=== PATIENT | female | born 1990 | race Hispanic/Latino ===

== ENCOUNTER 2021-10-24 07:22 | Emergency (ER) | payer MEDICAID, OTHER ==
[~2021-10-24] VITALS: Ht 160 cm; Wt 61.2 kg
[~2021-10-24 07:22] MED LIST: SERT25TA PO
[2021-10-24] MEDS ORDERED: ONDANSETRON 4MG INJ IVP ONE (08:30)
[2021-10-24] MEDS ORDERED: LACTATED RINGERS 1000ML 1,000 ML IV ONE (08:30)
[2021-10-24] MEDS ORDERED: KETOROLAC 30MG VIAL (30MG/ML) IVP ONE (08:30)
[2021-10-24 09:03] LABS: BASOPHILS % (AUTO) 0.3 % (0.0-5.0); HEMATOCRIT 38.7 % (36-48); LYMPHOCYTES % (AUTO) 16.6 % (21.0-51.0); MEAN CORPUSCULAR HEMOGLOBIN 28.8 pg (27.0-33.0); MEAN CORPUSCULAR HGB CONC 32.8 g/dL (32.0-36.0); MEAN CORPUSCULAR VOLUME 87.8 fL (79-99); MONOCYTES % (AUTO) 5.2 % (3.0-13.0); NEUTROPHILS % (AUTO) 76.6 % (40.0-77.0); PLATELET COUNT (AUTO) 223 K/uL (130-400); RED BLOOD CELL COUNT(AUTO) 4.41 MIL/uL (4.00-5.50); RED CELL DISTRIBUTION WIDTH 13.4 % (11.0-15.5); WHITE BLOOD COUNT (AUTO) 7.1 K/uL (4.8-10.8)
[2021-10-24 09:11] LABS: APPEARANCE,URINE Clear (CLEAR); BILIRUBIN,URINE Negative (NEGATIVE); COLOR,URINE Yellow (YELLOW); GLUCOSE, URINE (UA) Negative (NEGATIVE); KETONES,URINE Negative (NEGATIVE); LEUKOCYTE ESTERASE ,URINE Negative (NEGATIVE); NITRATE,URINE Negative (NEGATIVE); OCCULT BLOOD,URINE Negative (NEGATIVE); PH,URINE 6.5 (5.0-8.0); PROTEIN,URINE Negative (NEGATIVE); UROBILINOGEN,URINE 0.2 mg/dL (0.2-1.0)
[2021-10-24 09:12] LABS: CREATININE 0.8 mg/dL (0.5-1.5); POTASSIUM 3.6 mmol/L (3.5-5.1)
[2021-10-24 09:15] LABS: HCG,QUAL RESULT NEGATIVE (NEGATIVE)
[2021-10-24 09:16] LABS: ALBUMIN 4.2 g/dL (3.5-5.0); TOTAL PROTEIN, SERUM 8.2 g/dL (6.0-8.3)
[2021-10-24 11:20] VITALS: BP 99/53
[2021-10-24] MEDS ORDERED: IBUP-2070 PO (11:54)
[2021-10-24] MEDS ORDERED: ONDA4TAB10 PO (11:54)
== END 2021-10-24 12:08 | disposition home or self-care (01) ==
LOC: EDH 07:22
DX: U07.1 COVID-19 (principal); E86.0 Dehydration; R51.9 Headache, unspecified; R11.10 Vomiting, unspecified; Z79.1 Long term (current) use of non-steroidal anti-inflammatories (NSAID); Z79.899 Other long term (current) drug therapy
CPT/HCPCS: 99284; 96374; 71045; 87635; 96361; 96375; 82550; 80053; 83690; 85025; 87804 ×2; 81003; 81025; 36415; C9803; J7120; J2405; J1885